=== PATIENT | female | born 1950 | race Caucasian/White ===

== ENCOUNTER → 2018-01-05 | Day surgery (SDC) | payer OTHER ==
[~2018-01-05] VITALS: Ht 154.9 cm; Wt 115.2 kg
[~2018-01-05] MED LIST: ALLEGRA ALLERG180 M1 PO; ASPIRIN EC81 M1 PO; ATENOLOL50 M1 PO; BENICAR40 M1 PO; CADUET 5 MG-201 EACH PO; CELEBREX200 M1 PO; PROAIR HFA8.5 GM INH; SINGULAIR10 M1 PO; VITAMIN D250000 UNIT PO
--- NOTE | 2018-01-05 11:05 | Operative Report ---
Operative/Inv Procedure Report Surgery Date: 01/05/18 Name of Procedure: Hysteroscopy dilation and curettage Pre-Operative Diagnosis: Postmenopausal bleeding Post-Operative Diagnosis: Same Endometrial polyp Estimated Blood Loss: less than 50ml Surgeon/Production Zone Leader: Arpita Miner MD Anesthesia: general endotracheal tube IV Fluids: Lactated Ringer's Urine Output: Straight cath 50 mL clear urine at the beginning of the procedure Specimens: [facility] Complications: None Condition: Stable Operative Indication: 67-year-old, postmenopausal bleeding, ultrasound showed endometrial lining 3.9 mm Operative/Procedure Note Note: The patient was taken to the operating room where general anesthesia was obtained without difficulty. The patient was then examined under anesthesia and found to have anteverted uterus. She was then placed in the dorsal lithotomy position and prepared and draped in the usual sterile fashion. A bivalve speculum was then placed in the patient's vagina and the anterior lip of the cervix grasped with the single-tooth tenaculum. The cervix was dilated to accommodate a diagnostic hysteroscope, hysteroscope was inserted into the uterine cavity, 2 small polyp noted at side uterine wall, hysteroscope was withdrawn from the uterine cavity, a sharp curettage was then performed until gritty texture was noted. There was minimal bleeding noted and the tenaculum removed with good hemostasis noted. The patient tolerated the procedure well instruments laps counts were correct. The patient was taken to the recovery room in stable condition. Findings: Anteverted uterus , sounded to 7 cm, 2 small polyps seen at uterine sidewall
== END ==
LOC: STS 01:32
DX: N95.0 Postmenopausal bleeding (principal); N84.0 Polyp of corpus uteri; N85.4 Malposition of uterus; I10 Essential (primary) hypertension; J45.909 Unspecified asthma, uncomplicated
CPT/HCPCS: 36415; J0131; J2250